=== PATIENT | female | born 1980 | race Caucasian/White ===

== ENCOUNTER 2023-04-21 03:52 | Day surgery (SDC) | payer OTHER ==
[2023-04-20 15:15] VITALS: BMI 24.0
[2023-04-21] MEDS ORDERED: IOHEXOL 180 MG/1 ML ML IJ ONE (13:49)
[2023-04-21] MEDS ORDERED: LIDOCAINE HCL 1% PRESERVATIVE FREE - 30ML VIAL IJ ONE (13:49)
[2023-04-21] MEDS ORDERED: BUPIVACAINE HCL/PF 0.5% (5MG/ML) 10 ML VIAL IJ ONE (13:49)
[2023-04-21 16:36] VITALS: RESP 18
[2023-04-21 16:48] VITALS: BP 131/78; PULSE 68; TEMP 98.2
== END 2023-04-21 15:12 | disposition home or self-care (01) ==
LOC: JASU-SURG 03:52
PROVIDERS: ATTEND Pain Medicine Pain Medicine
PROC: 3E0T33Z Introduction of Anti-inflammatory into Peripheral Nerves and Plexi, Percutaneous Approach (ICD-10-PCS; 2023-04-21)
PROC: 3E0T3BZ Introduction of Anesthetic Agent into Peripheral Nerves and Plexi, Percutaneous Approach (ICD-10-PCS; principal; 2023-04-21 13:30)
DX: M47.812 Spondylosis without myelopathy or radiculopathy, cervical region (principal)
CPT/HCPCS: 76000-TC-FY; 81025